=== PATIENT | female | born 1945 | race Caucasian/White ===

== ENCOUNTER 2017-07-06 08:18 | Inpatient (IN) | payer OTHER ==
[2017-06-07 11:29] VITALS: BMI 37.0
--- NOTE | 2017-06-07 12:11 | PAT Medication Instructions ---
Service Date Jun 07, 2017. Current Home Medication List Amlodipine (Norvasc), 10 MG PO QAM Aspirin (Aspirin 81), 1 TAB PO QAM Meclizine Hcl (Meclizine Hcl), 1 TAB PO TID PRN for Dizziness or Vertigo Meloxicam (Meloxicam), 1 TAB PO QAM Omeprazole (Prilosec), 20 MG PO QAM Tramadol (Ultram), 50 MG PO DAILY PRN for Pain Medication Instructions For Your Scheduled Surgery - Instructions per surgeon: Meloxicam (Meloxicam), 1 TAB PO QAM - Take the following medications the morning of surgery with a sip of water OTHERWISE NOTHING TO EAT OR DRINK AFTER MIDNIGHT: Tramadol (Ultram), 50 MG PO DAILY PRN for Pain (use if needed; may take up to 4 hours prior to surgery if needed) Meclizine Hcl (Meclizine Hcl), 1 TAB PO TID PRN for Dizziness or Vertigo Omeprazole (Prilosec), 20 MG PO QAM Amlodipine (Norvasc), 10 MG PO QAM Aspirin (Aspirin 81), 1 TAB PO QAM - Take the following medications as scheduled the night before surgery: Tramadol (Ultram), 50 MG PO DAILY PRN for Pain Meclizine Hcl (Meclizine Hcl), 1 TAB PO TID PRN for Dizziness or Vertigo If you have any questions please call us at [phone] or [phone] or [phone]
--- NOTE | 2017-06-30 13:26 | HISTORY & PHYSICAL EXAMINATION ---
DATE OF ADMISSION: 07/06/2017 CHIEF COMPLAINT: Right knee pain. HISTORY OF PRESENT ILLNESS: This is a 71-year-old female, now a little over 2 years out from a left knee replacement, who presents for surgical treatment of her right knee. She has got a long history of knee pain and discomfort, initially treated by Dr. Slade and then followed by me. Conservative care has been less effective over time. The shots helped her a fairly minimally at this point. She has constant pain. The more she walks, the more it hurts. She has had to use a cane intermittently due to her pain and discomfort in her right knee. She would like her right knee replaced. The left knee is doing well. PAST MEDICAL HISTORY: Includes, 1. Hypertension. 2. COPD. 3. Sleep apnea. 4. Gastroesophageal reflux disease. 5. Obesity with a BMI of 38. 6. Hiatal hernia. PAST SURGICAL HISTORY: Includes, 1. Hysterectomy. 2. Right ankle surgery. 3. Left knee replacement done on 05/07/2015. ALLERGIES: None. CURRENT MEDICATIONS: 1. Amlodipine. 2. Aspirin 81 mg a day. 3. Protonix. SOCIAL HISTORY: A 71-year-old female. She lives in the [facility]. She is single and lives by herself. Does not smoke. FAMILY HISTORY: Noncontributory. REVIEW OF SYSTEMS: Negative for diabetes, neurologic problems, vascular problems or bleeding disorders. She denies any chest pain or shortness of breath. No history of DVT or PE. PHYSICAL EXAMINATION: GENERAL: Reveals a healthy pleasant elderly female, who looks to be in pretty good health. HEENT: Benign. NECK: Supple. No lymphadenopathy. LUNGS: Clear to auscultation. HEART: Regular rate and rhythm. ABDOMEN: Soft, nontender, and nondistended. EXTREMITIES: Grossly neurovascularly intact except as follows: Examination of the right knee reveals the patient walks with a little bit of waddling gait. She got varus alignment to her knee. Moderate soft tissue envelope. Small knee effusion. Range of motion is 5-120. No instability. Examination of left knee reveals a well-healed incision. The knee alignment looks anatomic. Range of motion is 0-125. No instability. X-RAYS: X-rays of the right knee reviewed. It shows advanced right knee DJD. She has complete loss of medial joint space. She does have patellofemoral disease as well. She has got some diffuse osteopenia. ASSESSMENT: A 71-year-old female 2 years out from a left knee replacement with advanced right knee pain and degenerative joint disease. She has failed conservative treatment and would like to have her right knee replaced. PLAN: We are going to take her to the operating room and do a right total knee replacement. The risks and benefits of this procedure were explained to the patient, including but not limited to DVT, PE, , infection, neurological injury, vascular injury, bleeding problem, pain, limited range of motion, stiffness, failure to relieve symptoms, incomplete relief of symptoms, need for further surgery in the future, fracture, leg length inequality, nerve palsy, persistent pain, etc. The patient understands and desires to proceed. Informed consent was obtained. On routine lab exam, her sed rate and C-reactive protein were just slightly elevated. There are no focal signs of infection and her left knee is doing well. We will keep this in mind during her surgery and recovery. As far as discharge plans, she is hoping to be discharged to [facility]. She went there last time and worked well. She lives alone and will need some assistance in the immediate postoperative period. CAPRI
[~2017-07-06] VITALS: Ht 165.1 cm; Wt 102.0 kg
[2017-07-06] VITALS (9 sets, daily range): BP systolic 113–152; BP diastolic 68–90; PULSE 64–76; TEMP 36.3–36.6; O2SAT 93–99; Ht 165.1 cm; Wt 102.0 kg
[~2017-07-06 08:18] MED LIST: ACETAMINOPHEN 500 MG TAB PO SCH; AMLO-114 PO; ASPI-435 PO; ATROPINE SULFATE 0.1 MG/ML 5ML SYR IV PRN; BUPIVACAINE 0.25% 30 ML VIAL ONE; BUPIVACAINE 0.5 % 5 MG/1 ML PF 10ML VIAL ONE; BUPIVACAINE LIPOSOME 266 MG, BUPIVACAINE/EPINEPHRINE INJ 50 ML, SODIUM CHLORIDE 0.9% PF... INFIL SCH; CEFAZOLIN 2000 MG/60 ML D5W 60 ML IV SCH; EpHEDrine SULFATE INJ 50 MG/ML AMP IV PRN; FAMOTIDINE 20 MG TAB PO SCH; GABAPENTIN 300 MG CAP PO SCH; LACTATED RINGER'S 1000ML 1,000 ML IV SCH; LACTATED RINGER'S 1000ML 500 ML IV ONE; LACTATED RINGER'S 1000ML IV SCH; MECL1TAB40 PO; MELO15TA4 PO; METOCLOPRAMIDE HCL 10 MG TAB PO SCH; ONDANSETRON INJ 2 MG/ML 2 ML VIAL IV PRN; PRLSR20 PO; SCOPOLAMINE 1.5 MG TDSY TD SCH; TRAM-10 PO; TRANEXAMIC ACID INJ 1,000 MG in SODIUM CHLORIDE 0.9% 100ML 100 ML IV SCH
--- NOTE | 2017-07-06 08:35 | History & Physical Bridge Note ---
H&P Re-Evaluation Bridge Note: I have examined the patient, reviewed the History & Physical and in the interval since the performance of the History & Physical I have noted the following changes of clinical significance: No changes noted
[2017-07-06] MEDS ORDERED: IBUP-1050 PO (08:36)
[2017-07-06] MEDS ORDERED: MIDAZOLAM HCL 1 MG/ML 2ML VIAL ONE ×2 (09:54→10:44)
[2017-07-06] MEDS ORDERED: BUPIVACAINE/EPINEPHRINE 0.25% 1:200,000 30 ML VIAL ONE (10:44)
[2017-07-06] MEDS ORDERED: BACITRACIN 50000 UNIT VIAL ONE (10:44)
[2017-07-06] MEDS ORDERED: BUPIVACAINE LIPOSOME 1/3% 266 MG/20 ML VIAL INFIL ONE (10:44)
[2017-07-06] MEDS ORDERED: SODIUM CHLORIDE 0.9% PF 50 ML VIAL ONE (10:44)
--- NOTE | 2017-07-06 12:33 | [facility] Post Operative Brief Note ---
Immediate Operative Summary Operative Date Jul 06, 2017. Pre-Operative Diagnosis Right Knee Advanced Degenerative Joint Disease Post-Operative Diagnosis Right Knee Advanced Degenerative Joint Disease Procedure(s) Performed Right Total Knee Arthroplasty Surgeon Dr. Reis Bilingual Secretary Surgeon(s) MALOU Vo Estimated Blood Loss 50 ml Findings Right Knee DJD Fluids (cc crystalloids) 1300 cc Specimens A. Right Knee Bone and Tissue Drains None Anesthesia Spinal Complication(s) None Disposition Recovery Room / PACU
[2017-07-06] MEDS ORDERED: SILVER SULFADIAZINE 1% CR 50 GM JAR EXT PRN (12:45)
[2017-07-06] MEDS ORDERED: MAGNESIUM HYDROXIDE SUSP 30 ML UDC PO PRN (12:45)
[2017-07-06] MEDS ORDERED: HYDROmorphone INJ 0.5 MG/0.5 ML SYR IV PRN (12:45)
[2017-07-06] MEDS ORDERED: BISACODYL 10 MG SUPP PR PRN (12:45)
[2017-07-06] MEDS ORDERED: ALUMINUM/MAGNESIUM/SIMETH (MAALOX MAX) 30 ML UDC PO PRN (12:45)
[2017-07-06] MEDS ORDERED: METOCLOPRAMIDE HCL INJ 5 MG/ML 2 ML VIAL IV PRN (12:45)
[2017-07-06] MEDS ORDERED: ZOLPIDEM TARTRATE 5 MG TAB PO PRN (12:45)
[2017-07-06] MEDS ORDERED: TRAMADOL HCL 50 MG TAB PO PRN (12:45)
[2017-07-06] MEDS ORDERED: ONDANSETRON INJ 2 MG/ML 2 ML VIAL IV PRN (12:45)
--- NOTE | 2017-07-06 13:13 | Anesthesiology Progress Note ---
Anesthesia Post Op Note Date & Time Jul 06, 2017 at 13:13 Vital Signs Pain Intensity: 0 Vital Signs Past 12 Hours Date Time Temp Pulse Resp B/P (MAP) Pulse Ox O2 Delivery O2 Flow Rate FiO2 07/06/17 13:05 75 21 07/06/17 13:05 76 21 95 07/06/17 13:01 123/70 07/06/17 13:00 72 20 99 07/06/17 13:00 72 20 07/06/17 12:56 130/58 07/06/17 12:55 75 20 99 07/06/17 12:55 74 20 07/06/17 12:54 71 17 100 07/06/17 12:54 71 17 07/06/17 12:51 136/60 07/06/17 12:48 71 28 07/06/17 12:48 71 28 100 07/06/17 12:46 120/57 07/06/17 12:43 64 22 07/06/17 12:43 63 22 100 07/06/17 12:41 134/64 07/06/17 12:39 130/58 07/06/17 12:38 67 15 07/06/17 12:38 67 15 96 07/06/17 12:38 37.0 82 14 130/58 97 Oxymask 10 07/06/17 08:50 36.4 70 20 152/90 93 Room Air Notes Mental Status: alert / awake / arousable, participated in evaluation Pt Amnestic to Procedure: Yes Nausea / Vomiting: adequately controlled Pain: adequately controlled Airway Patency, RR, SpO2: stable & adequate BP & HR: stable & adequate Hydration State: stable & adequate Neuraxial Anesthesia: was administered, sensory block is resolving Anesthetic Complications: no major complications apparent
--- NOTE | 2017-07-06 13:49 | DIAGNOSTIC IMAGING REPORT ---
TWO VIEWS RIGHT KNEE CLINICAL HISTORY: Postoperative examination. FINDINGS: AP and crosstable lateral portable views of the right knee are obtained. A right knee arthroplasty is in near anatomic alignment. There has been undersurface remodeling of the patella. No acute fracture is seen. There are expected postoperative changes around the knee including skin clips, soft tissue edema, and subcutaneous gas. IMPRESSION: Expected postoperative changes status post right knee arthroplasty. No acute fracture is seen. Electronically signed by: Chucho Ramsey M.D. 07/06/2017 1:48 PM Dictated Date/Time: 07/06/2017 1:48 PM
[2017-07-06] MEDS: ACETAMINOPHEN 500 MG TAB PO SCH ×2 (14:00→22:05)
[2017-07-06] MEDS ORDERED: ACETAMINOPHEN 500 MG TAB PO ONE (14:28)
[2017-07-06] MEDS: TRAMADOL HCL 50 MG TAB PO PRN (14:34)
[2017-07-06] MEDS: D5W AND 1/2NSS + 20MEQ KCL 1,000 ML IV SCH ×2 (14:34→22:06)
--- NOTE | 2017-07-06 15:21 | PROGRESS NOTE ---
DATE: 07/06/2017 SUBJECTIVE: A 71-year-old white female postop from a right knee replacement. She is having some pain in her leg. Just got some of her pain medicine. Denies any chest pain or shortness of breath. Not feeling dizzy or lightheaded. OBJECTIVE: VITAL SIGNS: Temperature is 36.5. Vital signs stable. PHYSICAL EXAMINATION: GENERAL: Reveals a pleasant elderly female. She is lying in bed and I had to wake her when I went to visit her this afternoon. LUNGS: Clear to auscultation. HEART: Regular rate and rhythm. ABDOMEN: Soft, nontender, nondistended. EXTREMITIES: Grossly neurovascularly intact except as follows: Examination of the right leg reveals the leg to be well aligned. She can dorsiflex and plantarflex her foot appropriately. She is neurologically intact. X-RAYS: X-rays of the right knee from recovery room were reviewed. It shows a right cemented posterior stabilized total knee arthroplasty. Components looked to be in good position. No signs of problems. ASSESSMENT: A 71-year-old white female from right knee replacement, doing pretty well. She is just having some pain and got some pain meds and seems to be more comfortable as I had to wake her when I came in. She is neurologically intact. PLAN: 1. DVT prophylaxis including thigh-high TEDs, SCDs, and aspirin twice a day. 2. PT/OT. She can weightbear as tolerated. Right total knee protocol. 3. Pain control, doing better with current pain regimen. We will obviously have to dose her medicines as spinal wears off. We will try and limit her narcotics. 4. IV antibiotics x24 hours. 5. Disposition: She is hoping to be discharged to [facility] for a brief rehab stay as she lives by herself and will need assistance.
[2017-07-06] MEDS: KETOROLAC TROMETHAMINE 15 MG/ML VIAL IV. SCH ×2 (16:51→22:04)
[2017-07-06] MEDS: CHECK SCOPOLAMINE PATCH PLACEMENT SCH ×2 (16:57→23:35)
[2017-07-06] MEDS ORDERED: TRANEXAMIC ACID INJ 1,000 MG in SODIUM CHLORIDE 0.9% 100ML 100 ML IV SCH (18:30)
[2017-07-06] MEDS: CEFAZOLIN IV 2,000 MG in DEXTROSE 5% 50ML 50 ML IV SCH (18:37)
[2017-07-06] MEDS: FERROUS GLUCONATE 324 MG TAB PO SCH (18:38)
[2017-07-06] MEDS: ASPIRIN 325 MG ECTAB PO SCH (21:04)
[2017-07-06] MEDS: DOCUSATE SODIUM 100 MG CAP PO SCH (21:04)
[2017-07-06] MEDS: SENNA 8.6 MG TAB PO SCH (21:05)
[2017-07-07] VITALS (9 sets, daily range): BP systolic 102–159; BP diastolic 58–95; PULSE 58–83; TEMP 36.5–36.9; O2SAT 92–97
--- NOTE | 2017-07-07 00:55 | OPERATIVE REPORT ---
DATE OF OPERATION: 07/06/2017 SURGEON: Ehsan Reis MD JUNIOR HIGH MATH TEACHER: MALOU Gonzalez PREOPERATIVE DIAGNOSIS: Right knee degenerative joint disease. POSTOPERATIVE DIAGNOSIS: Same. PROCEDURE PERFORMED: Right cemented posterior stabilized total knee arthroplasty. COMPLICATIONS: None. ESTIMATED BLOOD LOSS: 50 mL. FLUID REPLACEMENT: 1300 mL crystalloid fluid replacement. ANESTHESIA: Spinal with adductor canal block. DRAINS: None. SPECIMENS: Right knee sent for pathology. TOURNIQUET TIME: 52 minutes at 300 mmHg. OPERATIVE INDICATIONS: The patient is a 71-year-old female who has had a long history of bilateral knee pain and discomfort. She has been through extensive care. She had her left knee replaced 2 years ago and has done well from this. She continued to be debilitated by her right knee pain and degenerative joint disease. The patient elected to proceed with operative treatment. OPERATIVE FINDINGS: Operative findings revealed advanced right knee DJD. She had grade 4 [id number] disease particularly of the medial compartment. She had extensive grade 4 changes. The remainder of her knee was fairly well preserved. She had a fixed varus deformity to her knee. She had extensive osteoporosis/osteopenia, particularly in the tibia. OPERATIVE IMPLANTS: Operative implants consisted of: 1. Biomet Vanguard size 65 right posterior stabilized femoral component. 2. Biomet size 67 tibial tray. 3. A 12-mm posterior stabilized polyethylene insert. 4. A 28 x 8 all poly patella. OPERATIVE PROCEDURE: The patient was taken to the operating room, identified and placed on the operating table in the supine position. All contact areas were appropriately padded. IV antibiotics were provided by the anesthesia team. A spinal anesthetic and adductor canal block had been provided in the holding area. A right thigh tourniquet was then placed. The right lower extremity was then prepped and draped in the usual sterile fashion. The right leg was elevated and exsanguinated with Esmarch and tourniquet was placed at 300 mmHg. An anterior approach to the right knee was then performed through a longitudinal incision centered over the patella. Sharp dissection was carried out through the subcutaneous tissues down to the level of the extensor mechanism. A medial parapatellar arthrotomy incision was made. Some subperiosteal dissection was carried out medially. The fat pad was resected from beneath the patellar tendon. The lateral patellofemoral ligament was released. The patella was everted and the knee was flexed. The osteophytes were taken off the posterior aspect of the distal femur. The ACL and PCL were then released from the distal femur and the tibia subluxated anteriorly. The external tibial alignment jig was then placed in the anterior face of the tibia and adjusted 12 mm medially. Proximal tibial cut was made to remove about 2-3 mm of bone from the most deficient aspect of the medial tibial plateau. Tibia was then sized to a size 67. Attention was then drawn to the femur. The distal femur was entered with a sharp drill. Intramedullary canal was suctioned. A right 5-degree distal femoral cutting guide was placed. Distal femoral cutting block was pinned in place. Distal femoral cut was made to take an additional 3 mm of bone off the distal femur. The femur was then sized to a size 65. The AP cutting block was pinned parallel to the epicondylar axis, which was 3 degrees of external rotation. The anterior cut, anterior chamfer, posterior cut, and posterior chamfer cuts were made. Box cutting guide was placed and adjusted slight lateral and the box cut was made. The knee was flexed. The remnants of the medial and lateral meniscus were excised. The osteophytes were taken off the posterior aspect of the femur. A trial femoral component was placed. The tibial tray was then pinned in maximum external rotation and drill and stem punch were used to create defect in the proximal tibia for the tibial tray. The knee was then trialed and the 12-mm insert fit most appropriately. Attention was then drawn to the patella. The patella was cleaned of all soft tissues. Patella thickness measured 20 mm in thickness and it was cut down to 12. It was sized to a size 28 patella. Lug holes were drilled for 28 patella. Lateral osteophyte was removed. Patella button was placed. Knee was taken through range of motion and the patella tracked nicely with no thumbs test. Attention was then drawn toward placement of the permanent components. All trial components were removed. A bone plug was placed in the distal femur to limit blood loss. A double batch of Palacos G cement was mixed. A right size 65 posterior stabilized femoral component, size 67 tibial tray, a 12-mm posterior stabilized polyethylene insert, and a 28 x 8 all poly patella were then cemented in place. The knee was brought out into full extension until cement hardened. A final cement check was then performed. The pericapsular tissues were injected with a total of 100 mL of a combination of 20 mL of Exparel, 30 mL of normal saline, and 50 mL of 0.25% Marcaine with epinephrine. The patient did receive 1 gram of tranexamic acid. The tourniquet was then let down for a final tourniquet time of 52 minutes. Hemostasis was assured with the use of electrocautery. The wound was once again examined. I irrigated the wound once again. The extensor mechanism was then closed with a combination of #1 PDS and #1 Vicryl suture in a [id number] fashion. Extensor mechanism was checked and found to be intact. Subcutaneous tissues were then closed with 2-0 Dexon suture in a buried interrupted fashion. The skin was closed with skin kwasi. The leg was then cleaned and dried and a sterile dressing of Xeroform, 4 x 4, sterile cast padding and Harrison bandage were applied. The patient then transferred to the recovery room in stable condition. The patient tolerated the procedure well with no complications. All needle and sponge counts were correct at the end of the operation. I attest to the content of the Intraoperative Record and any orders documented therein. Any exceptions are noted below. HENRYD
[2017-07-07] MEDS: KETOROLAC TROMETHAMINE 15 MG/ML VIAL IV. SCH ×4 (03:08→21:18)
[2017-07-07] MEDS: CEFAZOLIN IV 2,000 MG in DEXTROSE 5% 50ML 50 ML IV SCH (03:08)
[2017-07-07] MEDS: D5W AND 1/2NSS + 20MEQ KCL 1,000 ML IV SCH (05:30)
[2017-07-07] MEDS: ACETAMINOPHEN 500 MG TAB PO SCH ×3 (05:30→21:18)
[2017-07-07 06:48] LABS: HEMATOCRIT 34.2 % (37-47); MEAN CELL VOLUME 84.9 fL (80-100); MEAN CORPUSCULAR HEMOGLOBIN 26.6 pg (25-34); MEAN CORPUSCULAR HGB CONC 31.3 g/dl (32-36); MEAN PLATELET VOLUME 10.4 fL (7.4-10.4); PLATELET COUNT 210 K/uL (130-400); RED BLOOD COUNT 4.03 M/uL (4.2-5.4); WHITE BLOOD COUNT 9.83 K/uL (4.8-10.8)
[2017-07-07 07:16] LABS: BUN/CREATININE RATIO 13.7 (10-20); CALCIUM 8.5 mg/dl (8.5-10.1); CREATININE 0.67 mg/dl (0.60-1.20); POTASSIUM 3.8 mmol/L (3.5-5.1)
[2017-07-07] MEDS: CHECK SCOPOLAMINE PATCH PLACEMENT SCH ×3 (08:00→23:35)
[2017-07-07] MEDS: DOCUSATE SODIUM 100 MG CAP PO SCH ×2 (08:44→21:17)
[2017-07-07] MEDS: MULTIVITAMIN TAB PO SCH (08:44)
[2017-07-07] MEDS: FERROUS GLUCONATE 324 MG TAB PO SCH ×3 (08:45→17:44)
[2017-07-07] MEDS: PANTOprazole SOD 40 MG TAB PO SCH (08:45)
[2017-07-07] MEDS: ASPIRIN 325 MG ECTAB PO SCH ×2 (08:48→21:17)
[2017-07-07] MEDS: AMLODIPINE BESYLATE 5 MG TAB PO SCH (08:48)
[2017-07-07] MEDS ORDERED: NON-FORMULARY MEDICATION (Omeprazole (Prilosec) 20 MG) PO SCH (09:00)
[2017-07-07] MEDS: MECLIZINE HCL 12.5 MG TAB PO PRN (10:12)
[2017-07-07] MEDS: TRAMADOL HCL 50 MG TAB PO PRN (10:15)
--- NOTE | 2017-07-07 15:07 | PROGRESS NOTE ---
DATE: 07/07/2017 SUBJECTIVE: A 71-year-old female postop day #1 from a right knee replacement. She is doing pretty well. She does report some chest heaviness that she says has been going on since noon, which is about 3 hours ago. She says this has happened before. She apparently has had a cardiac evaluation and had a stress-echo pre-op which was fairly normal. Her pain is reasonably well controlled. No shortness of breath. OBJECTIVE: VITAL SIGNS: Temperature 36.8. Vital signs stable. GENERAL: Reveals a pleasant elderly female. She is sitting up in bed and talking to her daughter. She looks completely comfortable. LUNGS: Clear to auscultation. HEART: Regular rate and rhythm. ABDOMEN: Soft, nontender, nondistended. EXTREMITIES: Grossly neurovascularly intact except as follows. Examination of the right lower extremity reveals the dressing to be clean, dry and intact. She can dorsiflex and plantarflex her foot appropriately. She is neurologically intact. LABORATORY DATA: Hemoglobin 10.7. Hematocrit 34.2. Electrolytes are stable. ASSESSMENT: A 71-year-old female postop day #1 from right knee replacement, doing reasonably well. Pain is controlled. She is having a sense of chest pressure and we are going to get an EKG to make sure there is no cardiac source. She has had a relatively recent stress test which was apparently normal. PLAN: 1. DVT prophylaxis including thigh-high TEDs, SCDs, and aspirin twice a day. 2. PT/OT. Weight bear as tolerated. Right total knee protocol. 3. Pain control. Doing reasonably well with current pain regimen. 4. Chest pain. We are going to get an EKG. If there are any abnormalities, will consult medicine. 5. Disposition: She is hoping to be discharged to [facility] for a rehab stay once medically stable. Addendum; EKG is completely normal. We will follow her symptoms, but do not feel further work-up necessary at this time as she had a normal stress echo pre- op as well. CAPRI
[2017-07-07] MEDS: SENNA 8.6 MG TAB PO SCH (21:17)
[2017-07-07] MEDS ORDERED: FRRG PO (21:17)
[2017-07-07] MEDS ORDERED: ULT50X PO (21:17)
[2017-07-07] MEDS ORDERED: ASPEC325 PO (21:17)
[2017-07-07] MEDS ORDERED: ACET-24 PO (21:17)
--- NOTE | 2017-07-07 21:20 | Discharge Instructions ---
Discharge Instructions Date of Service Jul 07, 2017. Admission Reason for Admission: Right Knee Degenerative Joint Disease Discharge Discharge Diagnosis / Problem: Right Knee Replacement Discharge Goals Goal(s): Decrease discomfort, Improve function, Increase independence, Improve disease control, Therapeutic intervention Activity Recommendations Activity Level: Assistance Required Therapies: Physical Therapy, Occupational Therapy Weightbearing Status: Right weightbearing . Additional Information Patient informed of condition: Yes Advance Directives: Yes DNR: No Level of Care: Acute Rehab Communicable Disease: No Prognosis: Improving Huerta Catheter: No Current Hospital Diet Patient's current hospital diet: Regular Diet Discharge Diet Recommended Diet: Regular Diet Procedures Procedures Performed: Right Total Knee Arthroplasty Pending Studies Studies pending at discharge: no Medical Emergencies . Who to Call and When: Medical Emergencies: If at any time you feel your situation is an emergency, please call 911 immediately. . Non-Emergent Contact Non-Emergency issues call your: Surgeon . . "Provider Documentation" section prepared by Ehsan Reis. . Core Measure Problem Core Measures: None
[2017-07-08] MEDS: KETOROLAC TROMETHAMINE 15 MG/ML VIAL IV. SCH ×3 (03:52→10:29)
[2017-07-08] MEDS: ACETAMINOPHEN 500 MG TAB PO SCH ×2 (06:06→14:58)
[2017-07-08 06:54] VITALS: BP 147/76; PULSE 75; TEMP 36.5; O2SAT 90
[2017-07-08] MEDS: CHECK SCOPOLAMINE PATCH PLACEMENT SCH (07:47)
--- NOTE | 2017-07-08 07:47 | PROGRESS NOTE ---
DATE: 07/08/2017 SUBJECTIVE: A 71-year-old female postop day 2 from right knee replacement. She is doing better today. Chest pain and discomfort has resolved. She thinks this is related to anxiety. Her pain is controlled in her knee as well. No chest pain. No bleeding problems. Not feeling dizzy or lightheaded. OBJECTIVE: VITAL SIGNS: Temperature is 36.5. Vital signs stable. PHYSICAL EXAMINATION: GENERAL: This is a pleasant elderly female. She is lying in bed and I had to wake her this morning. EXTREMITIES: Examination of the right leg reveals the leg to be well aligned. Dressing is clean, dry and intact. Some moderate swelling. She can dorsiflex and plantarflex her foot appropriately. She is neurologically intact. ASSESSMENT: A 71-year-old female postop day 2 from right knee replacement, doing well. She seems to be doing better today. Chest pain is resolved and likely related to reflux or anxiety. PLAN: 1. DVT prophylaxis including thigh-high TEDs, SCDs, and aspirin twice a day. 2. PT/OT. Weightbear as tolerated. Right total knee protocol. 3. Pain control, doing well with current pain regimen. 4. Disposition: Hoping to discharge to [facility] for a brief rehab stay once medically stable.
[2017-07-08] MEDS: DOCUSATE SODIUM 100 MG CAP PO SCH (09:05)
[2017-07-08] MEDS: FERROUS GLUCONATE 324 MG TAB PO SCH ×2 (09:05→12:57)
[2017-07-08] MEDS: ASPIRIN 325 MG ECTAB PO SCH (09:06)
[2017-07-08] MEDS: MULTIVITAMIN TAB PO SCH (09:06)
[2017-07-08] MEDS: PANTOprazole SOD 40 MG TAB PO SCH (09:06)
[2017-07-08] MEDS: AMLODIPINE BESYLATE 5 MG TAB PO SCH (09:06)
[2017-07-08] MEDS: MECLIZINE HCL 12.5 MG TAB PO PRN (09:07)
[2017-07-08 15:05] VITALS: BP 147/76; PULSE 75; TEMP 36.5; O2SAT 90
--- NOTE | 2017-07-16 18:32 | DISCHARGE SUMMARY ---
ADMITTING PHYSICIAN AND SURGEON: Dr. Reis. ADMITTING DIAGNOSIS: Right knee degenerative joint disease. SURGERY PERFORMED: Right total knee arthroplasty. SECONDARY DIAGNOSES: Hypertension, COPD, sleep apnea, gastroesophageal reflux disease, obesity, hiatal hernia. CONSULTS: None obtained. HISTORY AND PHYSICAL EXAMINATION: Well documented in the patient's chart. HOSPITAL COURSE: The patient was admitted on 07/06/2017 and underwent total knee arthroplasty. She tolerated procedure well. There were no complications and transferred to the PACU postoperatively and later to the orthopedic floor for further care. She was given Ancef for antibiotic prophylaxis, KORTNEY stockings, SCDs and aspirin for DVT prophylaxis. Hemoglobin, hematocrit and vital signs were monitored during her hospital stay and remained stable. She developed some postoperative anemia with a hemoglobin of 10.7 but did not require any blood transfusions. She did have some chest pain or chest pressure sensation on postop day #1 and had an EKG which was normal. No further intervention for this was obtained and her symptoms did resolve. There were no complications. By postoperative day 2, she was tolerating a general diet, pain was controlled with oral pain medicine. She was participating in physical therapy and had no signs or symptoms of deep vein thrombosis. On postop day 2, she was transferred to a rehab facility, given printed discharge instructions including prescriptions for extra strength Tylenol, aspirin 325 mg b.i.d., iron supplement and tramadol. Continue her home medicines with the exception of her home dose of aspirin and tramadol which was changed. Continue physical therapy, weightbearing as tolerated. KORTNEY stockings. Follow up in 10-12 days or sooner if there are any problems or concerns.
== END 2017-07-08 15:38 | DRG 470 ==
LOC: C.ACU 08:18 → C.3E 10:04 → ENRESERV 13:00
PROVIDERS: ADMIT Orthopaedic Surgery Sports Medicine; ATTEND Orthopaedic Surgery Sports Medicine
PROC: 0SRC0J9 Replacement of Right Knee Joint with Synthetic Substitute, Cemented, Open Approach (ICD-10-PCS; principal; 2017-07-06 10:50)
DX: M17.11 Unilateral primary osteoarthritis, right knee (principal); I10 Essential (primary) hypertension; J44.9 Chronic obstructive pulmonary disease, unspecified; G47.30 Sleep apnea, unspecified; K21.9 Gastro-esophageal reflux disease without esophagitis; E66.9 Obesity, unspecified; Z68.38 Body mass index [BMI] 38.0-38.9, adult; Z96.652 Presence of left artificial knee joint; Z79.82 Long term (current) use of aspirin